=== PATIENT | female | born 2000 | race Caucasian/White ===

== ENCOUNTER → 2024-07-27 10:09 | Outpatient (CLI) | payer OTHER, SELFPAY ==
[2024-07-27 12:23] LABS: Cancer Antigen 125 9.6 U/mL (0-35); Carcinoembryonic Antigen 0.8 ng/mL (0.1-3.0)
[2024-07-28 07:09] LABS: Alpha Fetoprotein 2.5 ng/mL (0.0-4.7)
[2024-07-31 09:40] LABS: Inhibin B 67.3 pg/mL (.)
== END ==
PROVIDERS: PCP Student in an Organized Health Care Education/Training Program; Referring Provider Obstetrics & Gynecology; Visit Provider Obstetrics & Gynecology
DX: D49.59 Neoplasm of unspecified behavior of other genitourinary organ (principal)
CPT/HCPCS: 36415; 82105; 82378; 83520; 86304

== ENCOUNTER 2024-08-13 09:02 | Day surgery (SDC) | payer OTHER, SELFPAY ==
[2024-08-03 10:33] VITALS: BMI 29.0
[2024-08-13] VITALS (8 sets, daily range): BP systolic 118–139; BP diastolic 82–88; PULSE 74–103; RESP 12–22; TEMP 36.1–36.7; O2SAT 93–100; BMI 29.8
--- NOTE | 2024-08-13 | PATH_ITS ---
[facility] Accession Number: [id number] No. of containers..01 Tissue . 01 Material submitted: . ovary - LEFT OVARY . 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 Negative for malignancy. [facility] 08/16/2024 1448 Local . 01 Comment: This case was also reviewed by Dr. Miriam Castillo (Julie), who agrees with the interpretation. . 01 Electronically signed: . Mandy Mckoy MD, Pathologist NPI- [id number] . 01 Gross description: . Received in formalin with two identifiers and left ovary, is an ovary with multiple cysts weighing 24 grams and measuring 6.1 x 4.5 x 2.9 cm. The external surface is inked blue. Sectioning reveals multiple cysts containing uribe serous to gelatinous material. An area of excrescences is identified, 1.0 x 0.9 cm. The remaining cyst blevins are thin and smooth, averaging 0.1 cm thick. Normal ovarian parenchyma is identified. Vascular Neurologist sections to include the entire area of excrescences are submitted in A1-A7. ([id number]) /MRV 08/14/2024 1759 Local . 01 Pathologist provided ICD-10: D49.59 . 01 CPT . 508786 Specimen Comment: A courtesy copy of this report has been sent to [facility] Performed at: [address] [facility] [facility], [place], [place] [id number] MD Mauricio Oh MD Phone: [phone]
[2024-08-13] MEDS: FAMOTIDINE 20 MG/2 ML VIAL IV (09:38)
[2024-08-13] MEDS: LACTATED RINGERS 1,000 ML 42 ML IV ×3 (09:38→11:20)
[2024-08-13] MEDS: ACETAMINOPHEN 325 MG TABLET 975 MG PO (09:38)
[2024-08-13] MEDS: SCOPOLAMINE 1 PATCH TOP (09:38)
--- NOTE | 2024-08-13 09:40 | PM.PREOP ---
Pre-operative Note Interval Note History & Physical reviewed/Exam performed by Physician: Yes Changes to H&P: No ASA Class (for procedural sedation): II
--- NOTE | 2024-08-13 10:30 | SUR.OPER ---
Lithotomy on padded OR bed. [place] Pad Positioner under torso. Head on pillow, arms padded and tucked at sides. Legs secured in padded yellow fins stirrups.
[2024-08-13] MEDS: BUPIVACAINE 0.5% W/ EPI (PF) 30 ML VIAL INJ (10:35)
--- NOTE | 2024-08-13 11:05 | P.OP_ITS ---
Operative Date/Time/Diagnoses Date of procedure: 08/13/24 Time of procedure: 11:05 Pre-op diagnosis: symptomatic ALTAGRACIA neoplasm Post-op diagnosis: same Procedure & Clinicians Procedure: diagnostic laparoscopy L oophorectomy drainage of R ovarian cyst Same procedure as scheduled: Yes Indications: symptomatic ovarian mass Surgeon: [employer] Professor: Karena Lange Click Yes if Unassisted: No Anesthesia Type: General Operative Notes Findings: large 8-10cm L ovarian cyst without visible viable ovarian stroma normal appearing bilateral fallopian tubes R ovary with 3cm simple cyst, drained negative intra-abdominal survey Closure Type: primary Specimen(s): other (L ovary ) Estimated Blood Loss (mL): 5 Procedure in detail: The patient was taken to the operating room, placed on the operating table in the supine position and intubated with ETT.? The patient was then placed in the lithotomy position with her legs in Emre stirrups.? The patient was then examined under anesthesia with the above findings, then prepped and draped in a sterile fashion.? A english catheter was placed.? Time out was performed. A sterile sponge stick was placed in the vagina for purposes of atraumatic uterine manipulation. A 5mm incision was made infraumbilically and abdominal entry was achieved under direct visualization using the 5mm VisaPort trocar.? Abdomen was insufflated to 15mmHg.? Two lateral 5-mm ports were placed in a similar manner under direct visualization.? The uterus was anteverted and abdominal survey was noted with findings as noted above. The Powerseal was used to dissect the left bilateral fallopian tube away from the adjacent mesosalpinx. The cortex of the ovarian cyst began to spontaneously separate away from the mesosalpinx and shelled out in a hemostatic fashion.? The utero-ovarian artery was burned and ligated followed with release of the L ovary and cyst. The infraumbilical incision was extended sharply to 1cm and the 5mm trocar was removed and replaced with 12mm trocar. Placing the camera via the R lateral port the endocatch bag was introduced via the 12mm trocar and specimen was placed inside under direct visualization using the atraumatic grasper via the L lateral port. The endocatch bag was closed and brought to the level of the incision. The abdominal insufflation was paused. Using S retractors the fascia was directly visualized at the level of the incision and sharply extended using moy scissors. The endcatch bag was then brought through the incision and the specimen within was sharply incised with return of copious serous fluid that was suction evacuated from the field. With release of cyst contents the specimen was easily brought through the incision and passed off the field for permanent study. The fascia was then closed under direct visualization using 0-0 vicryl on a UR6 needle. Abdominal insufflation was restored and intra-abdominal survey was completed. Noted 3cm simple ROV cyst was drained under direct visualization of copious clear/serous fluid. All wound beds were inspected and noted to be hemostatic. abdominal insufflation was once more released and lateral trocars were removed under direct visualization. The skin of all incisions was closed using 4-0 monocryl in subcuticular fashion followed by application of derambond. All counts correct x2. English catheter discontinued. Patient was awakened from anesthesia, extubated and taken to recovery in stable condition without complication. Complications: none Post-operative Condition: stable Disposition: PACU Plan for aftercare: anticipate dc to home pending clinical recovery
[2024-08-13] MEDS: hydrOXYzine HCL 25 MG TABLET PO (11:18)
[2024-08-13] MEDS: OXYCODONE IR 5 MG TABLET PO (11:25)
== END 2024-08-13 13:00 | disposition home or self-care (01) ==
PROVIDERS: PCP Student in an Organized Health Care Education/Training Program; Referring Provider Obstetrics & Gynecology; Visit Provider Obstetrics & Gynecology
PROC: (CPT 49320; principal; 2024-08-13 10:45)
DX: D49.59 Neoplasm of unspecified behavior of other genitourinary organ (principal); N83.291 Other ovarian cyst, right side
CPT/HCPCS: 58661; 81025; A9270; J1100; J1171; J1885; J2250; J2405; J2704; J3010; J3490